=== PATIENT | male | born 1980 | race African-American/Black ===

== ENCOUNTER 2020-05-09 14:29 | Emergency (ER) | payer OTHER ==
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
[2020-05-10] MEDS ORDERED: LIDOCAINE 4%/TETRACAINE 0.5%/EPI 0.18% 5 ML TOPICAL SOLN TOP ONE (02:16)
[2020-05-10] MEDS ORDERED: LIDOCAINE 1% INJ-PF (10 MG/ML) 30 ML SDV INJ ONE (02:18)
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
[2020-05-10] MEDS ORDERED: IBUPROFEN 800 MG TABLET PO ONE (02:35)
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
[2020-05-10] MEDS ORDERED: CEPHALEXIN 500 MG CAPSULE PO ONE (03:02)
[2020-05-10 03:39] VITALS: BP 136/80
== END 2020-05-10 03:39 | disposition home or self-care (01) ==
LOC: ER 14:29
DX: S01.81XA Laceration without foreign body of other part of head, initial encounter (principal); Y04.2XXA Assault by strike against or bumped into by another person, initial encounter; Y92.149 Unspecified place in prison as the place of occurrence of the external cause
CPT/HCPCS: 70486; 99283